=== PATIENT | male | born 1955 | race Caucasian/White ===

== ENCOUNTER 2016-10-11 12:10 | Inpatient (IN) | payer OTHER ==
[~2016-10-11] VITALS: Ht 165.1 cm; Wt 93.8 kg
[2016-10-11] VITALS (7 sets, daily range): BP systolic 138–173; BP diastolic 82–96; PULSE 71–86; RESP 16–20; TEMP 97.8–98.9; O2SAT 95–98
[2016-10-11 12:42] LABS: I-STAT POTASSIUM 3.8 MMOL/L (3.5-4.9)
[2016-10-11 12:45] LABS: AUTOMATED NEUTROPHIL # 2.1 TH/MM3 (1.8-7.7); BASOPHIL % 1.1 % (0.0-2.0); EOSINOPHIL # 0.3 TH/MM3 (0-0.4); EOSINOPHIL % 6.4 % (0.0-4.0); HEMATOCRIT 42.5 % (39.0-51.0); HEMO FLAGS DIFF FINAL; LYMPH % 32.7 % (9.0-44.0); LYMPHOCYTE # 1.4 TH/MM3 (1.0-4.8); MEAN CELL VOLUME 86.8 FL (80.0-100.0); MEAN CORPUSCULAR HEMOGLOBIN 30.1 PG (27.0-34.0); MEAN CORPUSCULAR HGB CONC 34.7 % (32.0-36.0); NEUT % 47.8 % (16.0-70.0); PLATELET COUNT 280 TH/MM3 (150-450); RED BLOOD COUNT 4.89 MIL/MM3 (4.50-5.90); RED CELL DISTRIBUTION WIDTH 13.4 % (11.6-17.2); WHITE BLOOD COUNT 4.4 TH/MM3 (4.0-11.0)
--- NOTE | 2016-10-11 12:45 | RADRPT ---
EXAM DATE/TIME: 10/11/2016 12:29 [facility] COMPARISON: No previous studies available for comparison. INDICATIONS : Stroke alert Right side weakness RADIATION DOSE: 42.43 CTDIvol (mGy) This report was called by Dr. Flanagan to Dr. Mcneill at 1241 hrs. MEDICAL HISTORY : Unable to obtain SURGICAL HISTORY : Unable to obtain ENCOUNTER: Initial ACUITY: 1 day PAIN SCALE: 0/10 LOCATION: cranial TECHNIQUE: Multiple contiguous axial images were obtained of the head. Using automated exposure control and adj ustment of the mA and/or kV according to patient size, radiation dose was kept as low as reasonably a chievable to obtain optimal diagnostic quality images. FINDINGS: CEREBRUM: The ventricles are normal for age. There are patchy white matter lucencies in the periventricular reg ion most characteristic of chronic small vessel ischemic change. No evidence of midline shift, mass l esion, hemorrhage or acute infarction. No extra-axial fluid collections are seen. POSTERIOR FOSSA: The cerebellum and brainstem are intact. The 4th ventricle is midline. The cerebellopontine angle i s unremarkable. EXTRACRANIAL: The visualized portion of the orbits is intact. SKULL: The calvaria is intact. No evidence of skull fracture. CONCLUSION: Negative exam with no evidence of acute hemorrhage or infarction.. Yonatan Flanagan MD on October 11, 2016 at 12:41 Board Certified Radiologist. This report was verified electronically.
[2016-10-11] MEDS ORDERED: LISI-519 PO (12:46)
--- NOTE | 2016-10-11 12:48 | PD ---
HPI Chief Complaint: Neuro Symptoms/ Deficits Time Seen by Provider: 12:15 Travel History International Travel<30 days: No Contact w/Intl Traveler<30days: No Traveled to known affect area: No History of Present Illness HPI This patient is vacationing from [place]. He's been here 2 days but forgot his antihypertensives at home. He woke up this morning at 7 AM. He felt the rate at that time. At 8 AM he tried to speak to his but he was slurring his words. He did not have headache or muscle weakness or sensory loss. No confusion. No history of CVA. His gave him a baby aspirin prior to arrival. Duration is 4.5 hours. Symptoms severity is mild to moderate. No alleviating factors PFSH Social History Alcohol Use: No Tobacco Use: No Substance Use: No Allergies-Medications Reported Meds & Prescriptions Reported Meds & Active Scripts Active Reported Lisinopril 5 Mg Tab 5 Mg PO DAILY Review of Systems General / Constitutional: No: Fever Eyes: No: Visual changes HENT: No: Headaches Cardiovascular: No: Chest Pain or Discomfort Respiratory: No: Shortness of Breath Gastrointestinal: No: Abdominal Pain Genitourinary: No: Dysuria Musculoskeletal: No: Pain Skin: No Rash Neurologic: Positive: Slurred Speech, Other, No: Weakness Psychiatric: No: Depression Endocrine: No: Polydipsia Hematologic/Lymphatic: No: Easy Bruising Physical Exam Narrative GENERAL: Well-nourished, well-developed patient in no apparent distress. SKIN: Warm and dry. HEAD: Atraumatic. Normocephalic. EYES: Pupils equal and round. No scleral icterus. No injection or drainage. ENT: No nasal bleeding or discharge. Mucous membranes pink and moist. NECK: Trachea midline. No JVD. CARDIOVASCULAR: Regular rate and rhythm. No murmur appreciated. RESPIRATORY: No accessory muscle use. Clear to auscultation. Breath sounds equal bilaterally. GASTROINTESTINAL: Abdomen soft, non-tender, nondistended. Hepatic and splenic margins not palpable. MUSCULOSKELETAL: No obvious deformities. No clubbing. No cyanosis. No edema. NEUROLOGICAL: Awake and alert. No obvious cranial nerve deficits. Motor grossly within normal limits. He has some slurring of speech but it is understandable. He has a very subtle right sided facial droop. Sensation is intact to sharp and light touch throughout PSYCHIATRIC: Appropriate mood and affect; insight and judgment normal. Data Data Last Documented VS Vital Signs Date Time Temp Pulse Resp B/P Pulse Ox O2 Delivery O2 Flow Rate FiO2 10/11/16 12:37 83 20 95 Room Air 10/11/16 12:37 98.5 173/96 Orders Diet Npo (10/11/16 Lunch) Activity Bed Rest (10/11/16 ) Electrocardiogram (10/11/16 ) I-Stat Creatinine (10/11/16 12:27) I-Stat Profile (10/11/16 12:27) Prothrombin Time / Inr (Pt) (10/11/16 12:27) Act Partial Throm Time (Ptt) (10/11/16 12:27) Complete Blood Count With Diff (10/11/16 12:27) Fibrinogen (10/11/16 12:27) Ct Brain W/O Iv Contrast(Rout) (10/11/16 ) Consult Neurology (10/11/16 ) Ecg Monitoring (10/11/16 12:27) Neuro Checks Q2HX12,Q4H (10/11/16 12:27) Nursing Bedside Swallow Assess .ONCE (10/11/16 12:27) Iv Access Insert/Monitor (10/11/16 12:27) NPO (10/11/16 12:27) Oximetry (10/11/16 12:27) Resp Oxygen Julian C Titrat 1-4 L (10/11/16 12:27) Cta Brain W Iv Contrast W 3d (10/11/16 ) Cta Neck W Iv Contrast W 3d (10/11/16 ) Labs Laboratory Tests Test 10/11/16 12:20 White Blood Count 4.4 TH/MM3 Red Blood Count 4.89 MIL/MM3 Hemoglobin 14.7 GM/DL Bedside Hemoglobin 15.0 G/DL Hematocrit 42.5 % Bedside Hematocrit 44.0 % Mean Corpuscular Volume 86.8 FL Mean Corpuscular Hemoglobin 30.1 PG Mean Corpuscular Hemoglobin 34.7 % Concent Red Cell Distribution Width 13.4 % Platelet Count 280 TH/MM3 Mean Platelet Volume 8.1 FL Neutrophils (%) (Auto) 47.8 % Lymphocytes (%) (Auto) 32.7 % Monocytes (%) (Auto) 12.0 % Eosinophils (%) (Auto) 6.4 % Basophils (%) (Auto) 1.1 % Neutrophils # (Auto) 2.1 TH/MM3 Lymphocytes # (Auto) 1.4 TH/MM3 Monocytes # (Auto) 0.5 TH/MM3 Eosinophils # (Auto) 0.3 TH/MM3 Basophils # (Auto) 0.0 TH/MM3 CBC Comment DIFF FINAL Differential Comment Prothrombin Time 10.7 SEC Prothromb Time International 1.0 RATIO Ratio Activated Partial 24.4 SEC Thromboplast Time Fibrinogen 257 mg/dL Bedside Sodium 142 MMOL/L Bedside Potassium 3.8 MMOL/L Bedside Chloride 102 MMOL/L Bedside Blood Urea Nitrogen 8 MG/DL Bedside Creatinine 0.8 MG/DL Bedside Glucose 123 MG/DL [facility] Medical Decision Making Medical Screen Exam Complete: Yes Emergency Medical Condition: Yes Medical Record Reviewed: Yes Differential Diagnosis Ischemic CVA, hemorrhagic CVA, TIA Narrative Course I have reviewed the patient's electronic medical record. Patient is vacationing and has never been here before I reviewed his EKG which shows sinus rhythm with a rate of 90 without ectopy Extended cardiac monitoring reveals sinus rhythm without ectopy I have made the patient a stroke alert Is critically ill with an acute stroke presentation Accu-Chek is normal I reviewed the case in detail with neurologist tar distillation supervisor Dr. Ibarra Brain CT results I discussed with the radiologist. There is no acute hemorrhage. There is some minor white matter ischemic change CBC is normal Metabolic profile is normal Coagulation studies are normal Neurologist recommended CTA of the brain and neck and so I am ordering those Patient is not going to receive TPA. I reviewed this with the neurologist. His deficits are subtle and minimal/mild deficits are reason to not risk TPA Plus his time is approaching 5 hours already and he has accelerated hypertension of 190 systolic Blood pressure now 178 systolic I'm utilizing permissive hypertension CTAs are pending but ordered I placed a call to hospitalist to discussed for admission to telemetry unit for acute ischemic CVA/stroke alert On reevaluation he has not improved or worsened Critical Care Narrative Aggregate critical care time was 35 minutes. Time to perform other separately billable procedures was not included in the critical care time. My time did not include minutes spent treating any other patients simultaneously or on activities that did not directly contribute to the patient's treatment. The services I provided to this patient were to treat and/or prevent clinically significant deterioration that could result in: Permanent neurologic deficit, cardiopulmonary arrest, brain stem herniation I provided critical care services requiring my management, as noted below: Chart data review, documentation time, medication orders and management, vital sign assessments/reviewing monitor data, ordering and reviewing lab tests, ordering and interpreting/reviewing x-rays and diagnostic studies, care of the patient and discussion of the patient with the admitting physicians. Diagnosis Primary Impression: Acute ischemic stroke Admitting Information Admitting Physician Requests: Admit Dwight Romero MD Oct 11, 2016 12:48
[2016-10-11 12:50] LABS: APTT (PATIENT) 24.4 SEC (24.3-30.1); PROTHROMBIN TIME - PATIENT 10.7 SEC (9.8-11.6)
[2016-10-11] MEDS ORDERED: IOHEXOL 350 MG/ML 10 ML VIAL (for RAD DIAG) IV ONE (13:53)
--- NOTE | 2016-10-11 14:16 | HHI.HP ---
[facility] Unknown Admission Diagnosis CVA Diagnoses: (1) Acute ischemic stroke Diagnosis: Principal Chief Complaint: slurred speech Travel History International Travel<30 Days: No Contact w/Intl Traveler <30 Da: No Traveled to Known Affected Are: No History of Present Illness patient is a 60 y/o male with history of hypertension, off his home medications since three days ago, presented to ER with slurred speech. he says that he woke up this morning and started to have slurred speech. his noted facial droop on the right side. he denies any focal weakness, headache or vision changes.he denies any chest pain or sob. he doesn't recall any prior similar symptoms in the past. Review of Systems Constitutional: DENIES: Fever, Weight loss, Chills, Night Sweats Eyes: DENIES: Blurred vision, Diplopia, Vision loss, Double Vision Ears, nose, mouth, throat: DENIES: Tinnitus, Vertigo, Throat pain, Epistaxis Respiratory: DENIES: Apneas, Cough, Snoring, Wheezing, Hemoptysis, Sputum production, Shortness of breath Cardiovascular: DENIES: Chest pain, Palpitations, Syncope, Dyspnea on Exertion , PND, Lower Extremity Edema, Orthopnea, Claudication Gastrointestinal: DENIES: Abdominal pain, Black stools, Bloody stools, Constipation, Diarrhea, Nausea, Vomiting, Difficulty Swallowing, Anorexia Genitourinary: DENIES: Urinary frequency, Urgency, Hematuria, Dysuria Musculoskeletal: DENIES: Joint pain, Muscle aches, Stiffness, Joint Swelling Integumentary: DENIES: Rash Neurologic: COMPLAINS OF: Speech Problems, DENIES: Abnormal gait, Headache, Localized weakness, Paresthesias, Seizures, Tremor, Poor Balance Psychiatric: DENIES: Anxiety, Confusion, Mood changes, Depression, Hallucinations, Agitation, Suicidal Ideation, Homicidal Ideation, Delusions Past Family Social History Past Medical History hypertension Past Surgical History none Reported Medications lisinopril Active Ordered Medications Current Medications Iohexol (Omnipaque 350 Inj) 75 ml STK-MED ONCE IV Last administered on t 13:53; Start 10/11/16 at 13:53; Stop 10/11/16 at 13:54; Status DC Family History heart disease in mother. Social History doesn't smoke or drink. Physical Exam Vital Signs Vital Signs Date Time Temp Pulse Resp B/P Pulse Ox O2 Delivery O2 Flow Rate FiO2 10/11/16 12:37 83 20 95 Room Air 10/11/16 12:37 95 Room Air 10/11/16 12:37 98.5 84 20 173/96 95 Room Air 10/11/16 12:23 98.5 86 20 173/96 95 Physical Exam GENERAL: This is a well-nourished, well-developed patient, in no apparent distress. SKIN: No rashes, ecchymoses or lesions. Cool and dry. HEAD: Atraumatic. Normocephalic. No temporal or scalp tenderness. EYES: Pupils equal round and reactive. Extraocular motions intact. No scleral icterus. No injection or drainage. ENT: Nose without bleeding, purulent drainage or septal hematoma. Throat without erythema, tonsillar hypertrophy or exudate. Uvula midline. Airway patent. NECK: Trachea midline. No JVD or lymphadenopathy. Supple, nontender, no meningeal signs. CARDIOVASCULAR: Regular rate and rhythm without murmurs, gallops, or rubs. RESPIRATORY: Clear to auscultation. Breath sounds equal bilaterally. No wheezes , rales, or rhonchi. GASTROINTESTINAL: Abdomen soft, non-tender, nondistended. No hepato-splenomegaly , or palpable masses. No guarding. MUSCULOSKELETAL: Extremities without clubbing, cyanosis, or edema. No joint tenderness, effusion, or edema noted. No calf tenderness. Negative Homans sign bilaterally. NEUROLOGICAL: Awake and alert. Cranial nerves II through XII intact. Motor and sensory grossly within normal limits. Five out of 5 muscle strength in all muscle groups. still with some slurred speech. Laboratory Laboratory Tests Test 10/11/16 12:20 White Blood Count 4.4 Red Blood Count 4.89 Hemoglobin 14.7 Bedside Hemoglobin 15.0 Hematocrit 42.5 Bedside Hematocrit 44.0 Mean Corpuscular Volume 86.8 Mean Corpuscular Hemoglobin 30.1 Mean Corpuscular Hemoglobin 34.7 Concent Red Cell Distribution Width 13.4 Platelet Count 280 Mean Platelet Volume 8.1 Neutrophils (%) (Auto) 47.8 Lymphocytes (%) (Auto) 32.7 Monocytes (%) (Auto) 12.0 Eosinophils (%) (Auto) 6.4 Basophils (%) (Auto) 1.1 Neutrophils # (Auto) 2.1 Lymphocytes # (Auto) 1.4 Monocytes # (Auto) 0.5 Eosinophils # (Auto) 0.3 Basophils # (Auto) 0.0 CBC Comment DIFF FINAL Differential Comment Prothrombin Time 10.7 Prothromb Time International 1.0 Ratio Activated Partial 24.4 Thromboplast Time Fibrinogen 257 Bedside Sodium 142 Bedside Potassium 3.8 Bedside Chloride 102 Bedside Blood Urea Nitrogen 8 Bedside Creatinine 0.8 Bedside Glucose 123 Result Diagram: 10/11/16 1220 Imaging Last Impressions Head CT 10/11/16 0000 Signed Impressions: Service Date/Time: Tuesday, October 11, 2016 12:29 - CONCLUSION: Negative exam with no evidence of acute hemorrhage or infarction.. Yonatan Flanagan MD Assessment and Plan Assessment and Plan A/P - possible CVA CT head with no acute abnormality- CTA brain and neck pending- neurology consulted. received aspirin prior to arrival. will check echo and lipid panel- neurology consulted. will consult PT/ST. -hypertension; hasn't had his home meds for the past three days permissive hypertension; vasotec as needed for now -DVT prophylaxis with SCD's Discussed Condition With ER physician, the patient and his . Physician Certification 2 Midnight Certification Type: Admission for Inpatient Services Order for Inpatient Services The services are ordered in accordance with Medicare regulations or non- Medicare payer requirements, as applicable. In the case of services not specified as inpatient-only, they are appropriately provided as inpatient services in accordance with the 2-midnight benchmark. Estimated LOS (days): 2 days is the estimated time the patient will need to remain in the hospital, assuming treatment plan goals are met and no additional complications. Post-Hospital Plan: Home Radha Venegas MD Oct 11, 2016 14:16
[2016-10-11] MEDS ORDERED: ENALAPRILAT 1.25 MG/ML VIAL IV PUSH PRN (14:30)
[2016-10-11] MEDS ORDERED: ONDANSETRON HCL 4 MG/2 ML VIAL IV PUSH PRN (14:30)
--- NOTE | 2016-10-11 14:42 | RADRPT ---
EXAM DATE/TIME: 10/11/2016 13:48 [facility] COMPARISON: CT BRAIN W/O CONTRAST, October 11, 2016, 12:29. INDICATIONS : Stroke alert. Right sided weakness. IV CONTRAST: 75 cc Omnipaque 350 (iohexol) IV ; Cumulative dose for multiple exams. RADIATION DOSE: 28.30 CTDIvol (mGy) ; Combined studies MEDICAL HISTORY : Hypertension. SURGICAL HISTORY : None. ENCOUNTER: Initial ACUITY: 1 day PAIN SCALE: 0/10 LOCATION: cranial TECHNIQUE: Volumetric scanning was performed using a multi-row detector CT scanner. The data was post processed with a variety of visualization algorithms including full volume maximum intensity projection, multi -planar sliding thin slab reformation, curved planar reformation, and surface rendering techniques. Using automated exposure control and adjustment of the mA and/or kV according to patient size, radiat ion dose was kept as low as reasonably achievable to obtain optimal diagnostic quality images. FINDINGS: There is excellent visualization of the major intracranial arteries out to the second-order branch ve ssels. There is no evidence for aneurysm, vessel truncation or stenosis, and no evidence for vascula r malformation. CONCLUSION: 1. No large or central vessel occlusion identified. Tyrone Hernandes MD on October 11, 2016 at 14:39 Board Certified Radiologist. This report was verified electronically.
--- NOTE | 2016-10-11 14:55 | RADRPT ---
EXAM DATE/TIME: 10/11/2016 13:48 [facility] COMPARISON: CT BRAIN W/O CONTRAST, October 11, 2016, 12:29. INDICATIONS : Stroke alert. Right sided weakness. IV CONTRAST: 75 cc Omnipaque 350 (iohexol) IV ; Cumulative dose for multiple exams. RADIATION DOSE: 28.30 CTDIvol (mGy) ; Combined studies MEDICAL HISTORY : Hypertension. SURGICAL HISTORY : None. ENCOUNTER: Initial ACUITY: 1 day PAIN SCALE: 0/10 LOCATION: cranial TECHNIQUE: Volumetric scanning was performed using a multirow detector CT scanner. The data was post processed with a variety of visualization algorithms including full-volume maximum intensity projection, multip lanar sliding thin-slab reformation, curved-planar reformation, and surface-rendering techniques. Us ing automated exposure control and adjustment of the mA and/or kV according to patient size, radiatio n dose was kept as low as reasonably achievable to obtain optimal diagnostic quality images. FINDINGS: AORTIC ARCH: There is a three-vessel origin of the great vessels from the aorta. No evidence of ostial narrowing. RIGHT CAROTID: The common carotid artery is intact. The carotid bulb has a normal configuration without ulceration o r narrowing. The internal carotid artery lumen is smooth without stenosis. The external carotid ander ry is intact. LEFT CAROTID: The common carotid artery is intact. The carotid bulb has a normal configuration without ulceration or narrowing. There is a single punctate atherosclerotic plaque at the bifurcation. The internal carr tid artery lumen is smooth without stenosis. The external carotid artery is intact. VERTEBRALS: The vertebral arteries have a symmetric diameter. No stenotic lesions are seen. CONCLUSION: 1. No hemodynamically significant carotid artery stenosis identified. There is a single punctate athe rosclerotic plaque at the bifurcation on the left. Tyrone Hernandes MD on October 11, 2016 at 14:52 Board Certified Radiologist. This report was verified electronically.
[2016-10-11] MEDS: SODIUM CHLOR 0.9% 1000 ML INJ 1,000 ML IV SCH (15:21)
--- NOTE | 2016-10-11 20:20 | PD.CONS ---
History of Present Illness Service Neurology Consult Requested By er Reason for Consult possible stroke Primary Care Physician Unknown History of Present Illness 60 y/o male [place] of [place], ran out of his meds a couple of days ago. developed speech changes this am. last normal at 7am. came to er noon. out of tpa window. glucose 123. ct brain naicp. cta brain/carotid no focal occlusion. bp 173/96 in er. thinks he his speech is still off. currently his major compliant is the bed and back pain-which is a chronic problem for him. denies any focal weakness. Review of Systems as above and admit hp Past Family Social History Past Medical History hypertension Past Surgical History none Reported Medications lisinopril Family History heart disease in mother. Social History doesn't smoke or drink. Review of Systems All other ROS: ROS reviewed as documented in chart Past Family Social History Allergies: Coded Allergies: No Known Allergies (Unverified , 10/11/16) Active Ordered Medications Current Medications Medications (Trade) Dose Ordered Sig/Karen Route Start Time Stop Time Status Last Admin (NS 1000 ml Inj) 1,000 ml @ 100 mls/hr Q10H IV 10/11/16 14:30 10/11/16 15:21 (Vasotec Inj) 1.25 mg Q8H PRN IV PUSH 10/11/16 14:30 (Zofran Inj) 4 mg Q8HR PRN IV PUSH 10/11/16 14:30 Exam I&O / VS Vital Signs Date Time Temp Pulse Resp B/P Pulse Ox O2 Delivery O2 Flow Rate FiO2 10/11/16 19:17 83 20 138/82 98 10/11/16 16:28 97.8 71 16 161/92 97 Room Air 10/11/16 16:28 Room Air 10/11/16 14:15 98.5 80 20 165/88 95 Room Air 10/11/16 12:37 83 20 95 Room Air 10/11/16 12:37 95 Room Air 10/11/16 12:37 98.5 84 20 173/96 95 Room Air 10/11/16 12:23 98.5 86 20 173/96 95 General: Alert and Oriented, No acute distress Eye: EOMI Respiratory: Non-labored respirations Cardiology: Normal rate Musculoskeletal: ROM Neurologic: Alert, Oriented, Normal sensory, No focal defects, CN II-XII intact , Normal DTR's Psychiatric: Cooperative Exam Comments alert, ox 3. clear speech, follows, attention on wanting his bed raised- which was done. vff grossly full, recognizes , able to name objects, no drift Review/Management Diagnosis/Plan: (1) Acute ischemic stroke Plan: possible vs tia recs aspirin stroke w/u aspirin med compliance d/c planning from neuro once above completed (2) HTN (hypertension) (3) Back pain, chronic Problem Qualifiers (1) HTN (hypertension): Qualified Code: I10 - Essential hypertension (2) Back pain, chronic: Marco Carmona MD Oct 11, 2016 20:20
[2016-10-12] VITALS (9 sets, daily range): BP systolic 137–148; BP diastolic 76–91; PULSE 71–85; RESP 18–20; TEMP 96.8–99.7; O2SAT 93–95
[2016-10-12] MEDS: SODIUM CHLOR 0.9% 1000 ML INJ 1,000 ML IV SCH ×3 (00:24→22:32)
[2016-10-12] MEDS: HEPARIN SODIUM - SQ 10,000 UNITS/ML VIAL SQ SCH ×4 (00:24→22:36)
[2016-10-12] MEDS ORDERED: ASPIRIN 300 MG SUPP RECTAL ONE (01:15)
--- NOTE | 2016-10-12 08:09 | HHI.PR ---
Review/Management Diagnosis/Plan: (1) Acute ischemic stroke Plan: possible tia recs aspirin mri brain/echo/lipids pending med compliance can be dc'd today from neurology if echo ok d/c planning from neuro once above completed (2) HTN (hypertension) (3) Back pain, chronic Subjective Subjective Comments No acute events reported No headache No chest pain No dyspnea Active Medications Current Medications Medications (Trade) Dose Ordered Sig/Karen Route Start Time Stop Time Status Last Admin (NS 1000 ml Inj) 1,000 ml @ 100 mls/hr Q10H IV 10/11/16 14:30 10/12/16 00:24 (Vasotec Inj) 1.25 mg Q8H PRN IV PUSH 10/11/16 14:30 (Zofran Inj) 4 mg Q8HR PRN IV PUSH 10/11/16 14:30 (Ecotrin Ec) 325 mg DAILY PO 10/12/16 00:00 (Heparin Inj) 5,000 units Q8H SQ 10/12/16 00:00 10/12/16 00:24 (Lipitor) 40 mg HS PO 10/12/16 00:00 Allergies Allergies Coded Allergies No Known Allergies (Unverified10/11/16) Review of Systems All other ROS: ROS reviewed as documented in chart Exam I&O / VS Vital Signs Date Time Temp Pulse Resp B/P Pulse Ox O2 Delivery O2 Flow Rate FiO2 10/12/16 05:29 97.9 73 18 145/76 93 10/12/16 00:25 97.3 84 18 141/91 94 10/11/16 23:00 98.9 85 20 156/96 96 10/11/16 20:47 88 20 154/92 98 10/11/16 19:17 83 20 138/82 98 10/11/16 16:28 97.8 71 16 161/92 97 Room Air 10/11/16 16:28 Room Air 10/11/16 14:15 98.5 80 20 165/88 95 Room Air 10/11/16 12:37 83 20 95 Room Air 10/11/16 12:37 95 Room Air 10/11/16 12:37 98.5 84 20 173/96 95 Room Air 10/11/16 12:23 98.5 86 20 173/96 95 General: Alert and Oriented, No acute distress Eye: EOMI Respiratory: Non-labored respirations Cardiology: Normal rate Musculoskeletal: ROM Neurologic: Alert, Oriented, Normal sensory, No focal defects, CN II-XII intact , Normal DTR's Psychiatric: Cooperative Exam Comments alert, ox 3. clear speech, follows, able to name, repeat, no drift Objective Micro and Labs Laboratory Tests Test 10/11/16 12:20 White Blood Count 4.4 Red Blood Count 4.89 Hemoglobin 14.7 Bedside Hemoglobin 15.0 Hematocrit 42.5 Bedside Hematocrit 44.0 Mean Corpuscular Volume 86.8 Mean Corpuscular Hemoglobin 30.1 Mean Corpuscular Hemoglobin 34.7 Concent Red Cell Distribution Width 13.4 Platelet Count 280 Mean Platelet Volume 8.1 Neutrophils (%) (Auto) 47.8 Lymphocytes (%) (Auto) 32.7 Monocytes (%) (Auto) 12.0 Eosinophils (%) (Auto) 6.4 Basophils (%) (Auto) 1.1 Neutrophils # (Auto) 2.1 Lymphocytes # (Auto) 1.4 Monocytes # (Auto) 0.5 Eosinophils # (Auto) 0.3 Basophils # (Auto) 0.0 CBC Comment DIFF FINAL Differential Comment Prothrombin Time 10.7 Prothromb Time International 1.0 Ratio Activated Partial 24.4 Thromboplast Time Fibrinogen 257 Bedside Sodium 142 Bedside Potassium 3.8 Bedside Chloride 102 Bedside Blood Urea Nitrogen 8 Bedside Creatinine 0.8 Bedside Glucose 123 Problem Qualifiers (1) HTN (hypertension): Qualified Code: I10 - Essential hypertension (2) Back pain, chronic: Marco Carmona MD Oct 12, 2016 08:09
[2016-10-12] MEDS: ASPIRIN EC 325 MG TABEC PO SCH ×2 (09:00)
[2016-10-12 10:11] LABS: HDL CHOLESTEROL 44.2 MG/DL (40.0-60.0); LDL CHOLESTEROL 149 MG/DL (0-99)
--- NOTE | 2016-10-12 11:07 | EC ---
Study Study Date:10/12/2016 STUDY CONCLUSIONS SUMMARY - Procedure narrative: Transthoracic echocardiography. Image quality was fair. Scanning was performed from the parasternal, apical, and subcostal acoustic windows. - Left ventricle: The cavity size was normal. Wall thickness was normal. Systolic function was low normal. Estimated ejection fraction is 50%. Although no diagnostic regional wall motion abnormality was identified, this possibility cannot be completely excluded on the basis of this study. - Aortic valve: Trileaflet;slight leaflet sclerosis. - Tricuspid valve: Trace regurgitation. If LV function is below 40, please consider prescribing an ACEI or ARB or document rationale for non-use. PROCEDURE DATA STUDY STATUS: Elective. Procedure: Transthoracic echocardiography. Image quality was fair. Scanning was performed from the parasternal, apical, and subcostal acoustic windows. Study completion: The patient tolerated the procedure well. Transthoracic echocardiography. M-mode, complete 2D, complete spectral Doppler, and color Doppler. Patient status: Inpatient. CARDIAC ANATOMY LEFT VENTRICLE: The cavity size was normal. Wall thickness was normal. Systolic function was low normal. Estimated ejection fraction is 50%. Although no diagnostic regional wall motion abnormality was identified, this possibility cannot be completely excluded on the basis of this study. AORTIC VALVE: Trileaflet;slight leaflet sclerosis. Doppler: Transvalvular velocity was within the normal range. There was no stenosis. No regurgitation. AORTA: Aortic root: The aortic root was normal in size. MITRAL VALVE: Structurally normal valve. Doppler: Transvalvular velocity was within the normal range. There was no evidence for stenosis. No regurgitation. Peak gradient: 4mm Hg (D). LEFT ATRIUM: The atrium was normal in size. RIGHT VENTRICLE: The cavity size was normal. Wall thickness was normal. PULMONIC VALVE: Doppler: Transvalvular velocity was within the normal range. There was no evidence for stenosis. No regurgitation. TRICUSPID VALVE: Structurally normal valve. Doppler: Transvalvular velocity was within the normal range. Trace regurgitation. PULMONARY ARTERY: The main pulmonary artery was normal-sized. Systolic pressure was within the normal range. RIGHT ATRIUM: The atrium was normal in size. PERICARDIUM: There was no pericardial effusion. SYSTEMIC VEINS: Inferior vena cava: The vessel was normal in size. BASIC MEASUREMENTS ADULT Normal Left ventricle LV internal dimension, ED, chordal level, *53.3 mm 43-52 PLAX LV internal dimension, ES, chordal level, *42.7 mm 23-38 PLAX Fractional shortening, chordal level, PLAX *20 % >29 LV posterior wall thickness, ED 8.29 mm IVS/LVPW ratio, ED 1.22 <1.3 Ventricular septum Septal thickness, ED 10.1 mm Aortic valve Leaflet separation 21 mm 15-26 Left atrium Anterior-posterior dimension 32 mm BASIC MEASUREMENTS ADULT Normal Aortic valve Leaflet separation 21 mm 15-26 Aorta Root diameter, ED 34 mm 20-37 DOPPLER MEASUREMENTS ADULT Normal Mitral valve Peak E-wave velocity 94.3 cm/s Peak A-wave velocity 46.1 cm/s Peak gradient, D 4 mm Hg Peak E/A ratio 2 Tricuspid valve Regurgitant peak velocity 212 cm/s Peak RV-RA gradient, S 18 mm Hg Maximal regurgitant velocity 212 cm/s LEGEND: Mean values are shown as u=mean value. Asterisk (*) anderson values outside specified normal range. Prepared and signed by Nazario Li [id number]
--- NOTE | 2016-10-12 11:13 | RADRPT ---
EXAM DATE/TIME: 10/12/2016 10:27 [place] COMPARISON: CTA BRAIN W 3D RECON, October 11, 2016, 13:48. CT BRAIN W/O CONTRAST, October 11, 2016, 12:29. INDICATIONS : CVA. MEDICAL HISTORY : Hypertension. SURGICAL HISTORY : None. ENCOUNTER: Initial ACUITY: 2 day PAIN SCORE: 4/10 LOCATION: Head TECHNIQUE: Multiplanar, multisequence MRI of the brain was performed without contrast. FINDINGS: The examination demonstrates scattered areas of T2 signal throughout the white matter most consistent with moderate microvascular ischemic demyelinative change. Graft a diffusion restricted images demon strate an area of abnormal restricted diffusion in the centrum semi-ovale on the left. This would be most consistent with an area of acute cortical infarct. The SWI images demonstrate a punctate area of decreased signal corresponding to the region of the infarct suggesting there is punctate hemorrhage within the central aspect of this. Sagittal T1-weighted images demonstrate normal formation of the corpus callosum and midline structure s. The cerebellar tonsils are in their appropriate location. No mass lesion is identified. No extra-axial fluid collections are present. The appearance of the posterior fossa is unremarkable. CONCLUSION: 1. Small area of acute cortical infarct in the white matter on the left. The SWI images demonstrate s ome signal dropout within this suggesting there is a punctate area of hemorrhage. 2. Scattered areas of increased T2 signal consistent with moderate microvascular ischemic demyelinati ve change. Tyrone Hernandes MD on October 12, 2016 at 10:55 Board Certified Radiologist. This report was verified electronically.
--- NOTE | 2016-10-12 11:31 | HHI.PR ---
Subjective Remarks resting comfortably with no distress. no new complaints. wants to go home today. d/w the RN. Objective Vitals Vital Signs Date Time Temp Pulse Resp B/P Pulse Ox O2 Delivery O2 Flow Rate FiO2 10/12/16 08:00 97.8 79 18 142/87 94 10/12/16 05:29 97.9 73 18 145/76 93 10/12/16 00:25 97.3 84 18 141/91 94 10/11/16 23:00 98.9 85 20 156/96 96 10/11/16 20:47 88 20 154/92 98 10/11/16 19:17 83 20 138/82 98 10/11/16 16:28 97.8 71 16 161/92 97 Room Air 10/11/16 16:28 Room Air 10/11/16 14:15 98.5 80 20 165/88 95 Room Air 10/11/16 12:37 83 20 95 Room Air 10/11/16 12:37 95 Room Air 10/11/16 12:37 98.5 84 20 173/96 95 Room Air 10/11/16 12:23 98.5 86 20 173/96 95 Result Diagram: 10/11/16 1220 Imaging Last Impressions Brain MRI 10/12/16 0000 Signed Impressions: Service Date/Time: Wednesday, October 12, 2016 10:27 - CONCLUSION: 1. Small area of acute cortical infarct in the white matter on the left. The SWI images demonstrate some signal dropout within this suggesting there is a punctate area of hemorrhage. 2. Scattered areas of increased T2 signal consistent with moderate microvascular ischemic demyelinative change. Tyrone Hernandes MD Neck CTA 10/11/16 0000 Signed Impressions: Service Date/Time: Tuesday, October 11, 2016 13:48 - CONCLUSION: 1. No hemodynamically significant carotid artery stenosis identified. There is a single punctate atherosclerotic plaque at the bifurcation on the left. Tyrone Hernandes MD Head CTA 10/11/16 0000 Signed Impressions: Service Date/Time: Tuesday, October 11, 2016 13:48 - CONCLUSION: 1. No large or central vessel occlusion identified. Tyrone Hernandes MD Head CT 10/11/16 0000 Signed Impressions: Service Date/Time: Tuesday, October 11, 2016 12:29 - CONCLUSION: Negative exam with no evidence of acute hemorrhage or infarction.. Yonatan Flanagan MD Objective Remarks GENERAL: This is a well-nourished, well-developed patient, in no apparent distress. CARDIOVASCULAR: Regular rate and regular rhythm without murmurs, gallops, or rubs. RESPIRATORY: Clear to auscultation. Breath sounds equal bilaterally. No wheezes , rales, or rhonchi. GASTROINTESTINAL: Abdomen soft, non-tender, nondistended. Normal, active bowel sounds MUSCULOSKELETAL: Extremities without clubbing, cyanosis, or edema. NEURO: Alert & Oriented x4 to person, place, time, situation. Moves all ext x4 Procedures none Medications and IVs Current Medications Iohexol 75 ml 75 ml STK-MED ONCE IV Last administered on 10/11/16 13:53; Start 10/11/16 at 13:53; Stop 10/11/16 at 13:54; Status DC Sodium Chloride (NS 1000 ml Inj) 1,000 ml @ 100 mls/hr Q10H IV Last administered on 10/12/16 09:03; Start 10/11/16 at 14:30 Enalaprilat (Vasotec Inj) 1.25 mg Q8H PRN IV PUSH SBP > 200 OR DBP > 120; Start 10/11/16 at 14:30 Ondansetron HCl (Zofran Inj) 4 mg Q8HR PRN IV PUSH NAUSEA; Start 10/11/16 at 14 :30 Aspirin (Ecotrin Ec) 325 mg DAILY PO ; Start 10/12/16 at 00:00 Heparin Sodium (Porcine) (Heparin Inj) 5,000 units Q8H SQ Last administered on 10/12/16 09:02; Start 10/12/16 at 00:00 Atorvastatin Calcium (Lipitor) 40 mg HS PO ; Start 10/12/16 at 00:00 Aspirin (Aspirin Supp) 300 mg ONCE ONCE RECTAL Last administered on 10/12/16 02:23; Start 10/12/16 at 01:15; Stop 10/12/16 at 01:16; Status DC A/P Assessment and Plan -acute CVA continue aspirin and statin. seen by PT/ST. d/w ; will consult cardiology for MARLENY. -hypertension;resume home meds soon counselled on compliance with his medical regimen -DVT prophylaxis with SCD's Discharge Planning awaiting cardiology evaluation/ MARLENY. Radha Venegas MD Oct 12, 2016 11:31 Radha Venegas MD Oct 12, 2016 11:31
[2016-10-12] MEDS ORDERED: LIPI40TA PO (11:32)
[2016-10-12] MEDS ORDERED: LISI-519 PO (11:32)
[2016-10-12] MEDS ORDERED: Aspirin Ec PO (11:32)
--- NOTE | 2016-10-12 11:33 | HHI.DCPOC ---
Discharge Care Plan Diagnosis: (1) Acute ischemic stroke (2) HTN (hypertension) Your Health Problems Are: Difficulty with Speech Goals to Promote Your Health * To prevent worsening of your condition and complications * To maintain your health at the optimal level Directions to Meet Your Goals Take your medications as prescribed Follow your dietary instruction Follow activity as directed Keep your appointments as scheduled Take your immunizations and boosters as scheduled If your symptoms worsen call your PCP, if no PCP go to Urgent Care Center or Emergency Room Smoking is Dangerous to Your Health. Avoid second hand smoke Call the 24-hour hour crisis hotline for domestic abuse at Radha Venegas MD Oct 12, 2016 11:33
--- NOTE | 2016-10-12 11:33 | HHI.DS ---
Discharge Summary Admission Date Oct 11, 2016 at 14:15 Discharge Date: Oct 12, 2016 Admitting Diagnosis CVA (1) Acute ischemic stroke ICD Code: I63.9 Diagnosis: Principal Procedures none Brief History - From Admission patient is a 60 y/o male with history of hypertension, off his home medications since three days ago, presented to ER with slurred speech. he says that he woke up this morning and started to have slurred speech. his noted facial droop on the right side. he denies any focal weakness, headache or vision changes.he denies any chest pain or sob. he doesn't recall any prior similar symptoms in the past. CBC/BMP: 10/11/16 1220 Significant Findings Laboratory Tests Test 10/11/16 10/12/16 12:20 08:16 Monocytes (%) (Auto) 12.0 % (0.0-8.0) Eosinophils (%) (Auto) 6.4 % (0.0-4.0) Bedside Glucose 123 MG/DL (60-95) Cholesterol Level 219 MG/DL (120-200) LDL Cholesterol 149 MG/DL (0-99) Imaging Last Impressions Brain MRI 10/12/16 0000 Signed Impressions: Service Date/Time: Wednesday, October 12, 2016 10:27 - CONCLUSION: 1. Small area of acute cortical infarct in the white matter on the left. The SWI images demonstrate some signal dropout within this suggesting there is a punctate area of hemorrhage. 2. Scattered areas of increased T2 signal consistent with moderate microvascular ischemic demyelinative change. Tyrone Hernandes MD Neck CTA 10/11/16 0000 Signed Impressions: Service Date/Time: Tuesday, October 11, 2016 13:48 - CONCLUSION: 1. No hemodynamically significant carotid artery stenosis identified. There is a single punctate atherosclerotic plaque at the bifurcation on the left. Tyrone Hernandes MD Head CTA 10/11/16 0000 Signed Impressions: Service Date/Time: Tuesday, October 11, 2016 13:48 - CONCLUSION: 1. No large or central vessel occlusion identified. Tyrone Hernandes MD Head CT 10/11/16 0000 Signed Impressions: Service Date/Time: Tuesday, October 11, 2016 12:29 - CONCLUSION: Negative exam with no evidence of acute hemorrhage or infarction.. Yonatan Flanagan MD PE at Discharge GENERAL: This is a well-nourished, well-developed patient, in no apparent distress. CARDIOVASCULAR: Regular rate and regular rhythm without murmurs, gallops, or rubs. RESPIRATORY: Clear to auscultation. Breath sounds equal bilaterally. No wheezes , rales, or rhonchi. GASTROINTESTINAL: Abdomen soft, non-tender, nondistended. Normal, active bowel sounds MUSCULOSKELETAL: Extremities without clubbing, cyanosis, or edema. NEURO: Alert & Oriented x4 to person, place, time, situation. Moves all ext x4 Hospital Course -acute CVA continue aspirin and statin. seen by PT/ f/u with neurology as outpatient. -hypertension;resume home meds counselled on compliance with his medical regimen -DVT prophylaxis with SCD's Pt Condition on Discharge: Good Discharge Disposition: Discharge Home Discharge Time: <= 30 minutes Discharge Instructions DIET: Follow Instructions for: Heart Healthy Diet, Low Fat Diet Activities you can perform: Regular-No Restrictions Follow up Referrals: Neurology PCP Follow-up New Medications: Atorvastatin (Lipitor) 40 Mg Tab 40 MG PO HS cva Days 30 Ref 0 TAB ([Aspirin Ec]) 325 MG TABEC 325 MG PO DAILY cva Days 30 Ref 0 TAB.EC Continued Medications: Lisinopril (Lisinopril) 5 Mg Tab 5 MG PO DAILY Blood Pressure Management #15 Ref 0 TAB (This prescription has been renewed) Radha Venegas MD Oct 12, 2016 11:33
[2016-10-12 13:31] LABS: ALT (GPT) 27 U/L (12-78); AST (GOT) 12 U/L (15-37)
--- NOTE | 2016-10-12 15:08 | MB ---
cc: BLAYNE VAN M.D. DATE OF CONSULTATION: 10/12/2016 REASON FOR CONSULTATION Assess for possible transesophageal echocardiography. HISTORY OF PRESENT ILLNESS The patient is a 60-year-old white male with a history of hypertension who presented to the emergency department with acute slurred speech. He was found to have evidence on MRI for acute cortical infarct on the left. Transthoracic echocardiogram this admission was technically difficult. There was no definite cardiac source of embolism identified. The patient denies chest pain, shortness of shortness of breath, palpitations, dizziness, syncope, near-syncope, pedal edema, paroxysmal nocturnal dyspnea. PAST MEDICAL HISTORY Hypertension. MEDICATIONS Cardiac medication at home: Lisinopril. ALLERGIES No known drug allergies. FAMILY HISTORY Noncontributory. SOCIAL HISTORY The patient denies any history of alcohol or tobacco abuse. REVIEW OF SYSTEMS As in the history of present illness otherwise negative or noncontributory. He also denies headache, visual changes, abdominal pain, melena, dyspepsia, bright red blood per rectum. PHYSICAL EXAMINATION VITAL SIGNS: Blood pressure 148/90 with a pulse of 77, respirations 18. GENERAL: In general he is a well-developed, well-nourished white male in no acute distress. HEENT/NECK: Jugular venous pressure is normal. Carotid pulses are 2+ bilaterally and without bruits. CHEST: Examination of the chest reveals clear lung golden. CARDIAC: On cardiac examination he has a regular rhythm and rate without S3, S4, or murmur. ABDOMEN: On abdominal examination he has a soft, nontender abdomen. Bowel sounds are present. There is no definite hepatosplenomegaly. EXTREMITIES: Examination of the extremities reveals no clubbing, cyanosis or edema. LABORATORY Laboratory data includes normal CBC, potassium 3.8, BUN 8, creatinine 0.8, total cholesterol 219, LDL 149, HDL 44, triglycerides 127. EKG EKG shows sinus rhythm, voltage criteria for LVH, borderline poor R-wave progression, left axis deviation. IMPRESSION Acute CVA in this 60-year-old white male with a history of hypertension. I have been asked to see the patient for possible transesophageal echocardiography. His transthoracic echo today shows no definite cardiac source of embolism, although the quality of the study precludes definitive assessment for source of embolism. I would agree overall with the need for transesophageal echocardiography. At this time the patient, [place], would like to be discharged and follow-up in the near future with a grinder chipper back home. RECOMMENDATIONS 1. Agree with statin therapy given his suboptimal lipid profile. 2. He can be discharged home from a cardiac standpoint as long as he follows up closely with a grinder chipper near home. If he decides to stay tonight, I have scheduled transesophageal echo tomorrow morning. MD SANTIAGO Lewis/CESAR /2:48 PM /3:01 PM MTDAndreea
[2016-10-12 16:17] LABS: HEMOGLOBIN A1a 0.9 %; HEMOGLOBIN A1b 1.6 %; HEMOGLOBIN Ao 86.6 %; HEMOGLOBIN LA1C 1.7 %; HEMOGLOBIN P3 3.3 %
[2016-10-12] MEDS: ATORVASTATIN 40 MG TAB PO SCH ×2 (22:30)
--- NOTE | 2016-10-12 23:10 | EKG ---
Date Performed: 10/11/2016 Time Performed: 12:20:46 PTAGE: 60 years EKG: Sinus rhythm MARKED LEFT AXIS DEVIATION PATTERN CONSISTENT WITH PULMONARY DISEASE VOLTAGE CRITERIA FOR LVH ABNORM AL ECG NO PREVIOUS TRACING DOCTOR: Brooke Saucedo Interpretating Date/Time 10/12/2016 23:06:10
[2016-10-13 00:56] VITALS: BP 134/80; PULSE 82; RESP 18; TEMP 98.5; O2SAT 95
[2016-10-13 04:55] VITALS: BP 145/91; PULSE 77; RESP 18; TEMP 97.1; O2SAT 97
[2016-10-13] MEDS: SODIUM CHLOR 0.9% 1000 ML INJ 1,000 ML IV SCH ×2 (06:30→15:37)
[2016-10-13 08:00] VITALS: BP 149/94; PULSE 83; RESP 19; TEMP 97.6; O2SAT 97
[2016-10-13] MEDS: HEPARIN SODIUM - SQ 10,000 UNITS/ML VIAL SQ SCH ×2 (08:00→15:37)
[2016-10-13] MEDS: ASPIRIN EC 325 MG TABEC PO SCH (08:19)
--- NOTE | 2016-10-13 08:40 | HHI.PR ---
Review/Management Diagnosis/Plan: (1) Acute ischemic stroke Plan: left subcortical infarct likely 2/2 samll vessel/chronic htn mri brain images reviewed; d/w pt and spouse recs aspirin/statin daily dionna today d/c planning after dionna- if no significant abnormality found f/u with pcp/cards/neuro when he returns home (2) HTN (hypertension) (3) Back pain, chronic Subjective Subjective Comments No acute events reported No headache No chest pain No dyspnea Active Medications Current Medications Medications (Trade) Dose Ordered Sig/Karen Route Start Time Stop Time Status Last Admin (NS 1000 ml Inj) 1,000 ml @ 100 mls/hr Q10H IV 10/11/16 14:30 10/12/16 22:32 (Vasotec Inj) 1.25 mg Q8H PRN IV PUSH 10/11/16 14:30 (Zofran Inj) 4 mg Q8HR PRN IV PUSH 10/11/16 14:30 (Ecotrin Ec) 325 mg DAILY PO 10/12/16 00:00 (Heparin Inj) 5,000 units Q8H SQ 10/12/16 00:00 10/12/16 22:36 (Lipitor) 40 mg HS PO 10/12/16 00:00 10/12/16 22:30 Allergies Allergies Coded Allergies No Known Allergies (Unverified10/11/16) Review of Systems All other ROS: ROS reviewed as documented in chart Exam I&O / VS 10/12/16 10/12/16 10/13/16 15:00 23:00 07:00 Intake Total 480 ml 600 ml Balance 480 ml 600 ml Intake Oral 480 ml 600 ml # Voids 3 2 # Bowel Movements 1 Vital Signs Date Time Temp Pulse Resp B/P Pulse Ox O2 Delivery O2 Flow Rate FiO2 10/13/16 04:55 97.1 77 18 145/91 97 10/13/16 00:56 98.5 82 18 134/80 95 10/12/16 23:30 71 10/12/16 20:00 98.3 85 20 137/86 95 10/12/16 18:25 94 21 10/12/16 16:00 96.8 81 18 144/89 94 10/12/16 14:11 94 10/12/16 12:00 99.7 77 18 148/91 94 General: Alert and Oriented, No acute distress Eye: EOMI Respiratory: Non-labored respirations Cardiology: Normal rate Musculoskeletal: ROM Neurologic: Alert, Oriented, Normal sensory, No focal defects, CN II-XII intact , Normal DTR's Psychiatric: Cooperative Exam Comments alert, ox 3. clear speech, follows, able to name, repeat, no drift Problem Qualifiers (1) HTN (hypertension): Qualified Code: I10 - Essential hypertension (2) Back pain, chronic: Marco Carmona MD Oct 13, 2016 08:40
[2016-10-13] MEDS ORDERED: METOPROLOL TARTRATE 25 MG TAB PO PRN (09:15)
[2016-10-13] MEDS ORDERED: LACTATED RINGER'S 1000 ML IV SCH (09:15)
[2016-10-13] MEDS ORDERED: INSULIN HUMAN REGULAR 1,000 UNITS/10 ML VIAL SQ PRN (09:15)
[2016-10-13] MEDS ORDERED: SODIUM CHLORID 0.9% 500 ML IV SCH (09:15)
[2016-10-13] MEDS ORDERED: PROPOFOL 200 MG/20 ML AMP IV ONE (10:56)
[2016-10-13 12:21] VITALS: BP 151/79; PULSE 80; RESP 20; TEMP 96.7; O2SAT 95
--- NOTE | 2016-10-13 12:46 | HHI.PR ---
Subjective Remarks resting comfortably with no distress. no new complaints. d/w the RN and no acute issues over night. awaiting MARLENY. Objective Vitals Vital Signs Date Time Temp Pulse Resp B/P Pulse Ox O2 Delivery O2 Flow Rate FiO2 10/13/16 12:21 96.7 80 20 151/79 95 10/13/16 08:00 97.6 83 19 149/94 97 10/13/16 04:55 97.1 77 18 145/91 97 10/13/16 00:56 98.5 82 18 134/80 95 10/12/16 23:30 71 10/12/16 20:00 98.3 85 20 137/86 95 10/12/16 18:25 94 21 10/12/16 16:00 96.8 81 18 144/89 94 10/12/16 14:11 94 I/O 10/12/16 10/12/16 10/12/16 10/13/16 10/13/16 10/13/16 07:00 15:00 23:00 07:00 15:00 23:00 Intake Total 480 ml 600 ml Balance 480 ml 600 ml Intake Oral 480 ml 600 ml # Voids 3 2 # Bowel Movements 1 Result Diagram: 10/11/16 1220 Imaging Last Impressions Brain MRI 10/12/16 0000 Signed Impressions: Service Date/Time: Wednesday, October 12, 2016 10:27 - CONCLUSION: 1. Small area of acute cortical infarct in the white matter on the left. The SWI images demonstrate some signal dropout within this suggesting there is a punctate area of hemorrhage. 2. Scattered areas of increased T2 signal consistent with moderate microvascular ischemic demyelinative change. Tyrone Hernandes MD Neck CTA 10/11/16 0000 Signed Impressions: Service Date/Time: Tuesday, October 11, 2016 13:48 - CONCLUSION: 1. No hemodynamically significant carotid artery stenosis identified. There is a single punctate atherosclerotic plaque at the bifurcation on the left. Tyrone Hernandes MD Head CTA 10/11/16 0000 Signed Impressions: Service Date/Time: Tuesday, October 11, 2016 13:48 - CONCLUSION: 1. No large or central vessel occlusion identified. Tyrone Hernandes MD Head CT 10/11/16 0000 Signed Impressions: Service Date/Time: Tuesday, October 11, 2016 12:29 - CONCLUSION: Negative exam with no evidence of acute hemorrhage or infarction.. Yonatan Flanagan MD Objective Remarks GENERAL: This is a well-nourished, well-developed patient, in no apparent distress. CARDIOVASCULAR: Regular rate and regular rhythm without murmurs, gallops, or rubs. RESPIRATORY: Clear to auscultation. Breath sounds equal bilaterally. No wheezes , rales, or rhonchi. GASTROINTESTINAL: Abdomen soft, non-tender, nondistended. Normal, active bowel sounds MUSCULOSKELETAL: Extremities without clubbing, cyanosis, or edema. NEURO: Alert & Oriented x4 to person, place, time, situation. Moves all ext x4 Procedures none Medications and IVs Current Medications Iohexol 75 ml 75 ml STK-MED ONCE IV Last administered on 10/11/16 13:53; Start 10/11/16 at 13:53; Stop 10/11/16 at 13:54; Status DC Sodium Chloride (NS 1000 ml Inj) 1,000 ml @ 100 mls/hr Q10H IV Last administered on 10/12/16 22:32; Start 10/11/16 at 14:30 Enalaprilat (Vasotec Inj) 1.25 mg Q8H PRN IV PUSH SBP > 200 OR DBP > 120; Start 10/11/16 at 14:30 Ondansetron HCl (Zofran Inj) 4 mg Q8HR PRN IV PUSH NAUSEA; Start 10/11/16 at 14 :30 Aspirin (Ecotrin Ec) 325 mg DAILY PO ; Start 10/12/16 at 00:00 Heparin Sodium (Porcine) (Heparin Inj) 5,000 units Q8H SQ Last administered on 10/12/16 22:36; Start 10/12/16 at 00:00 Atorvastatin Calcium (Lipitor) 40 mg HS PO Last administered on 10/12/16 22:30 ; Start 10/12/16 at 00:00 Aspirin 300 mg 300 mg ONCE ONCE RECTAL Last administered on 10/12/16 02:23; Start 10/12/16 at 01:15; Stop 10/12/16 at 01:16; Status DC Lactated Ringer's 1,000 ml @ 30 mls/hr Q24H IV ; Start 10/13/16 at 09:15 Sodium Chloride (NS 500 ml Inj) 500 ml @ 30 mls/hr [id number] IV ; Start 10/13/16 at 09:15; Stop 10/14/16 at 09:14 Insulin Human Regular (NovoLIN R INJ) See Protocol Table ... UNSCH X1 PRN SQ SEE PROTOCOL; Start 10/13/16 at 09:15; Stop 10/14/16 at 09:14 Metoprolol Tartrate (Lopressor) 25 mg UNSCH X1 PRN PO SEE LABEL COMMENTS; Start 10/13/16 at 09:15; Stop 10/14/16 at 09:14 A/P Assessment and Plan -acute CVA continue aspirin and statin. seen by PT/ST. awaiting MARLENY. -hypertension;resume home meds . counselled on compliance with his medical regimen -DVT prophylaxis with SCD's Discharge Planning dc home- hopefully soon- pending MARLENY. f/u; pcp,cardiology and neurology upon discharge. see med list. d/w the patient and RN. Radha Venegas MD Oct 13, 2016 12:46
[2016-10-13 14:32] VITALS: PULSE 70
--- NOTE | 2016-10-13 14:33 | ETE ---
Study Study Date:10/13/2016 STUDY CONCLUSIONS SUMMARY - Study data: Transesophageal echocardiography. The patient tolerated the procedure well. - Procedure narrative: Sedation. Conscious sedation was administered by anesthesiology staff. - Adverse outcomes: There were no complications. - Left ventricle: The cavity size was normal. Wall thickness was normal. Systolic function was normal. The estimated ejection fraction was in the range of 50% to 55%. Wall motion was normal; there were no regional wall motion abnormalities. - Aortic valve: No evidence of vegetation. - Mitral valve: No evidence of vegetation. - Left atrium: No evidence of thrombus in the atrial cavity or appendage. - Right atrium: No evidence of thrombus in the atrial cavity or appendage. - Atrial septum: There was increased thickness of the septum, consistent with lipomatous hypertrophy. Echo saline contrast study showed no [id number] shunt. - Tricuspid valve: No evidence of vegetation. Trace regurgitation. - Pulmonic valve: No evidence of vegetation. If LV function is below 40, please consider prescribing an ACEI or ARB or document rationale for non-use. PROCEDURE DATA Consent: The risks, benefits, and alternatives to the procedure were explained to the patient and informed consent was obtained. Procedure: Initial setup. The patient was brought to the laboratory in the fasting state. Intravenous access was obtained. Surface ECG leads and pulse oximetric signals were monitored. Sedation. Conscious sedation was administered by anesthesiology staff. Transesophageal echocardiography. Topical anesthesia was obtained using viscous lidocaine. A transesophageal probe was inserted by the attending back tufter. Image quality was good. Study completion: All IVs inserted during the procedure were removed. The patient tolerated the procedure well. There were no complications. Transesophageal echocardiography. 2D, complete spectral Doppler, and color Doppler. CARDIAC ANATOMY LEFT VENTRICLE: The cavity size was normal. Wall thickness was normal. Systolic function was normal. The estimated ejection fraction was in the range of 50% to 55%. Wall motion was normal; there were no regional wall motion abnormalities. AORTIC VALVE: Structurally normal valve. Trileaflet; normal thickness leaflets. Cusp separation was normal. No evidence of vegetation. Doppler: No significant regurgitation. Aorta: - There was no atheroma. There was no evidence for dissection. Aortic root: The aortic root was not dilated. Ascending aorta: The ascending aorta was normal in size. Aortic arch: The aortic arch was normal in size. Descending aorta: The descending aorta was normal in size. MITRAL VALVE: Structurally normal valve. Leaflet separation was normal. No evidence of vegetation. Doppler: No significant regurgitation. LEFT ATRIUM: The atrium was normal in size. No evidence of thrombus in the atrial cavity or appendage. The appendage was morphologically a left appendage, multilobulated, and of normal size. Emptying velocity was normal. ATRIAL SEPTUM: There was increased thickness of the septum, consistent with lipomatous hypertrophy. Echo saline contrast study showed no [id number] shunt. RIGHT VENTRICLE: The cavity size was normal. Wall thickness was normal. Systolic function was normal. PULMONIC VALVE: Structurally normal valve. No evidence of vegetation. TRICUSPID VALVE: Structurally normal valve. Leaflet separation was normal. No evidence of vegetation. Doppler: Trace regurgitation. PULMONARY ARTERY: The main pulmonary artery was normal-sized. RIGHT ATRIUM: The atrium was normal in size. No evidence of thrombus in the atrial cavity or appendage. The appendage was morphologically a right appendage. PERICARDIUM: There was no pericardial effusion. Prepared and signed by Nazario Li [id number]
[2016-10-13 16:00] VITALS: BP 173/99; PULSE 83; RESP 18; TEMP 97.8; O2SAT 97
== END 2016-10-13 18:30 | disposition home or self-care (01) | DRG 66 ==
LOC: NEPE 12:10 → NEDA 14:15 → NEDH 19:31 → N05A 20:55
PROVIDERS: ADMIT Internal Medicine; ATTEND Internal Medicine
PROC: B24BZZ4 Ultrasonography of Heart with Aorta, Transesophageal (ICD-10-PCS; principal; 2016-10-13)
DX: I63.9 Cerebral infarction, unspecified (principal); R47.81 Slurred speech; R29.810 Facial weakness; I10 Essential (primary) hypertension; Z91.14 Patient's other noncompliance with medication regimen; M54.9 Dorsalgia, unspecified; G89.29 Other chronic pain
CPT/HCPCS: 70450; 70496; 70498; 70551; 80061; 82435; 82565; 82607; 82947; 83036; 84132; 84295; 84443; 84450; 84460; 84520; 85025; 85384; 85610; 85652; 85730; 93005; 93306; 93312; 93320; 93325; J1644; J7030; J7120; Q9967